=== PATIENT | female | born 1955 | race Caucasian/White ===

== ENCOUNTER 2024-11-15 16:05 | Emergency (ER) | payer MEDICARE, SELFPAY ==
[2024-11-15 16:17] VITALS: BP 133/80; PULSE 86; RESP 16; TEMP 36.3; O2SAT 97; BMI 25.0
== END 2024-11-15 17:39 | disposition left against medical advice (07) ==
PROVIDERS: Emergency Provider Emergency Medicine
CPT/HCPCS: 99281